=== PATIENT | male | born 1960 | race Caucasian/White ===

== ENCOUNTER 2022-01-09 06:59 | Inpatient (IN) | payer OTHER, BC ==
[2022-01-09] MEDS ORDERED: Fentanyl 100 MCG/2 ML VIAL ONE (07:05)
[2022-01-09] MEDS ORDERED: Ondansetron PF 4 MG/2 ML Vial ONE ×2 (07:05→17:42)
[2022-01-09 07:36] LABS: Mean Corpuscular HGB CONC 34.3 g/dL (32.0-36.0); Mean Corpuscular Hemoglobin 28.8 pg (27.0-31.0); Mean Corpuscular Volume 83.9 fL (78.0-98.0); Mean Platelet Volume 6.9 fL (7.4-10.4); Platelet Count 236 thou/uL (130-400); White Blood Cell (WBC) Count 16.5 thou/uL (4.8-10.8)
[2022-01-09 07:47] LABS: ALT (SGPT) 35 U/L (8-55); AST (SGOT) 36 U/L (5-34); Albumin 4.2 g/dL (3.5-5.0); Alkaline Phosphatase 47 U/L (40-110); Anion Gap 19 mmol/L (10-20); BUN (Urea Nitrogen) 15 mg/dL (8.4-25.7); Bilirubin, Total 0.5 mg/dL (0.2-1.2); Calc. Creatinine Clearance 0 mL/min (70-130); Calcium 9.2 mg/dL (7.8-10.44); Carbon Dioxide 20 mmol/L (22-29); Chloride 101 mmol/L (98-107); Estimated GFR 100; Globulin 3.1 g/dL (2.4-3.5); Glucose 219 mg/dL (70-105); Lipase 35 U/L (8-78); Potassium 4.7 mmol/L (3.5-5.1); Protein, Total 7.3 g/dL (6.0-8.3); Sodium 135 mmol/L (136-145)
[2022-01-09 07:49] LABS: Prothrombin Time 13.1 sec (12.0-14.7)
[2022-01-09 07:50] LABS: PTT 26.5 sec (22.9-36.1)
[2022-01-09 08:19] LABS: Band 11 % (5-11); Eosinophils 2 % (0-10); Lymphocytes 11 % (21-51); MDiff Complete? YES; Monocytes 7 % (0-10); Myelocyte 1 % (0-0); Neutrophil 68 % (42-75); Platelet Morphology Comment Appears Adequate; RBC Morphology Normal
[2022-01-09] MEDS ORDERED: Lidocaine 1% MPF 2 ML VIAL ONE ×2 (08:32→17:42)
[2022-01-09] MEDS ORDERED: CEFAZOLIN 2 GM in Sodium Chloride 0.9% 100 ML IVPB SCH (10:45)
[2022-01-09 10:57] LABS: SARS-CoV-2 NAA Rapid Test Not Detected (NotDetected)
[2022-01-09] MEDS ORDERED: HumaLOG 300 UNITS/3 ML VIAL SC PRN (11:15)
[2022-01-09] MEDS ORDERED: Dextrose 5% in Water 1,000 ML IV PRN (11:15)
[2022-01-09] MEDS ORDERED: Ondansetron PF 4 MG/2 ML Vial IVP PRN (11:15)
[2022-01-09] MEDS ORDERED: Morphine 2 MG/ML VIAL SLOW IVP PRN (11:15)
[2022-01-09] MEDS ORDERED: hydrALAZINE 20 MG/ML VIAL SLOW IVP PRN (11:15)
[2022-01-09] MEDS ORDERED: Dextrose 50% Abboject 50 ML SYRINGE SLOW IVP PRN (11:15)
[2022-01-09] MEDS ORDERED: Promethazine HCl 25 MG/ML VIAL IM PRN ×3 (11:15→19:35)
[2022-01-09] MEDS ORDERED: traMADol HCl 50 MG TAB PO PRN (11:18)
[2022-01-09] MEDS ORDERED: Ketorolac Tromethamine 30 MG/ML VIAL IVP SCH (12:00)
[2022-01-09] MEDS: Sodium Chloride 0.9% 1,000 ML IV SCH ×2 (13:15→21:01)
[2022-01-09] MEDS: Acetaminophen 500 MG TAB PO SCH ×2 (13:15→17:43)
[2022-01-09] MEDS: traMADol HCl 50 MG TAB PO SCH ×2 (13:16→17:44)
[2022-01-09 13:24] VITALS: BMI 37.3
[2022-01-09 14:21] LABS: Acetaminophen Less than 10.0 mcg/mL (10.0-30.0); Alcohol Less than 10 mg/dL (Less than 10); Salicylate Less than 8.0 mg/dL (15.0-30.0)
[2022-01-09] MEDS ORDERED: Iopamidol-370 76% 500 ML 1 ML ONE (14:30)
[2022-01-09] MEDS: Gabapentin 300 MG CAP PO SCH ×2 (16:28→21:00)
[2022-01-09 16:43] LABS: Bilirubin Negative (Negative); Blood, Urine Trace (Negative); Clarity Clear (Clear); Glucose, Urine (Dipstick) Normal (Negative); Ketone, Urine 10 mg/dL (Negative); Leukocyte 250 Leu/uL (Negative); Nitrite 2+ (Negative); Protein, Urine (Dipstick) Negative (Neg-Trace); RBC/HPF 0-3 HPF (0-3); Specific Gravity, Urine 1.033 (1.002-1.036); Squamous Epithelial None Seen HPF (0-3); Urobilinogen Normal mg/dL (Less than 2); WBC/HPF 21-50 HPF (0-3)
[2022-01-09 16:44] LABS: Bacteria/HPF 1+ HPF (None Seen)
[2022-01-09 16:46] LABS: Urine Culture Reflex Yes Yes
[2022-01-09] MEDS ORDERED: fentaNYL Citrate/PF 100 MCG/2 ML SYRINGE ONE (16:55)
[2022-01-09] MEDS ORDERED: Sodium Chloride 0.9% 100 ML ONE (16:57)
[2022-01-09] MEDS ORDERED: CEFAZOLIN 2 GM VIAL ONE (16:57)
[2022-01-09] MEDS ORDERED: Neomycin-Polymyxin 1 ML AMP ONE (17:29)
[2022-01-09] MEDS ORDERED: Bacitracin Zinc Ointment 30 gm TUBE ONE (17:29)
[2022-01-09] MEDS ORDERED: Bupivacaine 0.25% 10 ML VIAL ONE (17:29)
[2022-01-09] MEDS ORDERED: Dexamethasone 20 MG/5 ML VIAL ONE (17:42)
[2022-01-09] MEDS ORDERED: PROPOFOL 200 MG/20 ML VIAL ONE (17:42)
[2022-01-09] MEDS: Ketorolac Tromethamine 30 MG/ML VIAL IVP SCH (17:43)
[2022-01-09] MEDS ORDERED: Promethazine HCl 25 MG/ML VIAL IVPB PRN (18:41)
[2022-01-09] MEDS ORDERED: Ondansetron HCl/PF 4 MG/2 ML Vial IVP PRN (18:41)
[2022-01-09] MEDS ORDERED: Levofloxacin 500 mg/D5W 100 ml Premix Bag ONE (19:14)
[2022-01-09] MEDS ORDERED: Meperidine HCl/PF 25 MG/ML VIAL IM PRN (19:35)
[2022-01-09] MEDS ORDERED: Morphine 4 MG/ML VIAL SLOW IVP PRN (19:36)
[2022-01-09] MEDS: Vancomycin 1.5 GRAM/300 ML BAG 1.5 GM in Premix Bag 1 BAG IVPB SCH (20:59)
[2022-01-09] MEDS: Senokot S 8.6-50 MG TAB PO SCH (21:00)
[2022-01-09] MEDS: Famotidine/PF 20 mg/2ml Vial SLOW IVP SCH (21:00)
[2022-01-10] MEDS: traMADol HCl 50 MG TAB PO SCH ×3 (00:41→12:36)
[2022-01-10] MEDS: Acetaminophen 500 MG TAB PO SCH ×3 (00:41→12:35)
[2022-01-10] MEDS: Ketorolac Tromethamine 30 MG/ML VIAL IVP SCH ×4 (00:42→12:41)
[2022-01-10 06:08] LABS: #Lymphocytes 1.1 thou/uL (1.20-3.40); #Monocytes 0.7 thou/uL (0.11-0.59); #Neutrophils 14.4 thou/uL (1.40-6.50); %Basophils 0.2 % (0.0-1.0); %Eosinophils 0.2 % (0.0-10.0); %Lymphocytes 6.8 % (21.0-51.0); %Monocytes 4.1 % (0.0-10.0); %Neutrophils 88.8 % (42.0-75.0); Hemoglobin 12.9 g/dL (14.0-18.0); Mean Corpuscular HGB CONC 33.7 g/dL (32.0-36.0); Mean Corpuscular Hemoglobin 28.6 pg (27.0-31.0); Mean Corpuscular Volume 84.8 fL (78.0-98.0); Mean Platelet Volume 6.6 fL (7.4-10.4); Platelet Count 247 thou/uL (130-400); RBC Distribution Width 13.2 % (11.5-14.5); Red Blood Cell (RBC) Count 4.49 mill/uL (4.70-6.10); White Blood Cell (WBC) Count 16.3 thou/uL (4.8-10.8)
[2022-01-10 06:16] LABS: Anion Gap 16 mmol/L (10-20); BUN (Urea Nitrogen) 15 mg/dL (8.4-25.7); Calc. Creatinine Clearance 129 mL/min (70-130); Calcium 8.6 mg/dL (7.8-10.44); Carbon Dioxide 20 mmol/L (22-29); Chloride 104 mmol/L (98-107); Estimated GFR 81; Glucose 367 mg/dL (70-105); Magnesium 1.7 mg/dL (1.6-2.6); Phosphorus 2.8 mg/dL (2.3-4.7); Potassium 4.7 mmol/L (3.5-5.1); Sodium 135 mmol/L (136-145)
[2022-01-10] MEDS ORDERED: HumaLOG 300 UNITS/3 ML VIAL SC PRN (07:51)
[2022-01-10] MEDS ORDERED: Sodium Phosphate 15 MMOL in Sodium Chloride 0.9% 250 ML 250 ML IVPB SCH (08:00)
[2022-01-10] MEDS ORDERED: Magnesium 2 GM/50 ML(in water) 2 GM in Premix Bag 1 BAG IVPB SCH (08:00)
[2022-01-10] MEDS ORDERED: Polyethylene Glycol 3350 17 GM Packet PO SCH (09:00)
[2022-01-10] MEDS ORDERED: Lisinopril 2.5 MG TAB PO SCH ×2 (09:00)
[2022-01-10] MEDS ORDERED: Rosuvastatin 5 MG TAB PO SCH (09:00)
[2022-01-10] MEDS: Senokot S 8.6-50 MG TAB PO SCH (09:37)
[2022-01-10] MEDS: Famotidine/PF 20 mg/2ml Vial SLOW IVP SCH (09:37)
[2022-01-10] MEDS: Gabapentin 300 MG CAP PO SCH ×2 (09:47→14:56)
[2022-01-10] MEDS: Vancomycin 1.5 GRAM/300 ML BAG 1.5 GM in Premix Bag 1 BAG IVPB SCH (10:46)
[2022-01-10 12:54] VITALS: BP 138/70; TEMP 97.9
== END 2022-01-10 15:38 | disposition home or self-care (01) | DRG 513 ==
LOC: ERS 06:59 → SURG A 10:31
PROVIDERS: ADMIT Surgery; ATTEND Surgery
PROC: 0RBX0ZZ Excision of Left Finger Phalangeal Joint, Open Approach (ICD-10-PCS; principal; 2022-01-09)
PROC: 01Q60ZZ Repair Radial Nerve, Open Approach (ICD-10-PCS; 2022-01-09)
PROC: 0LQ80ZZ Repair Left Hand Tendon, Open Approach (ICD-10-PCS; 2022-01-09)
PROC: 0HQGXZZ Repair Left Hand Skin, External Approach (ICD-10-PCS; 2022-01-09)
DX: S56.426A Laceration of extensor muscle, fascia and tendon of left ring finger at forearm level, initial encounter (principal); G61.0 Guillain-Barre syndrome; S22.22XA Fracture of body of sternum, initial encounter for closed fracture; S22.31XA Fracture of one rib, right side, initial encounter for closed fracture; S62.615B Displaced fracture of proximal phalanx of left ring finger, initial encounter for open fracture; N39.0 Urinary tract infection, site not specified; Z20.822 Contact with and (suspected) exposure to COVID-19; E11.9 Type 2 diabetes mellitus without complications; E78.5 Hyperlipidemia, unspecified; I10 Essential (primary) hypertension; Z90.89 Acquired absence of other organs; Z79.899 Other long term (current) drug therapy; Z79.84 Long term (current) use of oral hypoglycemic drugs; Z88.7 Allergy status to serum and vaccine; V44.5XXA Car driver injured in collision with heavy transport vehicle or bus in traffic accident, initial encounter; Y92.410 Unspecified street and highway as the place of occurrence of the external cause
CPT/HCPCS: 12002; 36415; 36416; 70450; 70498; 71260; 72125; 74177; 80048; 80053; 80307; 81001; 83690; 83735; 84100; 84146; 84484; 85025; 85610; 85730; 87077; 87086; 87186; 93005; 94760; 96374; 96375; G0390; J0690; J1815; J1885; J1956; J2405; J3010; J3370; J3475; J3490; J7050; S0020; S0028; U0002